=== PATIENT | female | born 1985 | race African-American/Black ===

== ENCOUNTER 2019-06-22 09:01 | Observation (INO) | payer OTHER ==
[2019-06-22] MEDS ORDERED: SODIUM CHLORIDE 1,000 ML IV SCH (09:15)
[2019-06-22 09:19] VITALS: BMI 21.3
--- NOTE | 2019-06-22 09:28 | PDOC ---
History of Present Illness - General Chief Complaint: Weakness Stated Complaint: LT SIDEDE WEAKNESS Time Seen by Provider: 06/22/19 09:17 History Source: Patient Exam Limitations: No Limitations - History of Present Illness Initial Comments: 06/22/19 09:33 34 yo F with a hx of SLE, protein S deficiency, thrombocytopenia, MVP, left renal transplant (02/05/2018), TIA (2009), and CVA (2005) presents to the emergency department with left sided weakness and aphasia. Per the patient, she was normal before 7:45 am. At that time, she had sudden onset of weakness in the left arm and left leg with lightheadedness. EMS was called. En route to [facility] , the patient became aphasic. The patient was initially evaluated by me and was unable to verbally express questions (refer to Dr. Meza's NIHSS stroke scale which is the initial). Currently, she states she is nearly back to normal save for left arm sensory loss and weakness in her left leg. The patient denies the following: fevers, chills, SOB, chest pain, nausea, vomiting, lightheadedness, visual disturbance, ears/nose/throat pain, abdominal pain, dysuria, hematuria, diarrhea, and leg pain/swelling. PMD: Dr. Grover Social: Denies tobacco, alcohol, and substance abuse. 06/22/19 12:58 tPA Exclusion Checklist 0-3hr - Time Elapsed Date last known well: 06/22/19 Time last known well: 07:45 Elaspsed time: Day(s) and 5 Hour(s) and 13 Minutes - Thrombolytic Therapy Candidate Is the patient eligible for Thrombolytic Therapy?: Yes - Exclusion Criteria 0-3hr SBP greater than 185 or DBP greater than 110mmHg despite tx: Yes Recent IC/spinal surgery,head trauma or stroke w/in last 3mo: No Hx of previous IC hemorrhage, IC neoplasm, AVM or aneurysm: No Active internal bleeding: No Blding diathesis(low plt ct, inc PTT,INR>1.7 or use of NOAC): No Symptoms suggest subarachnoid hemorrhage: No CT demonstrates multilobar infarct(>1/3 cerebral hemiphere): No Arterial puncture at noncompressible site in previous 7 days: No Blood glucose concentration less than 50mg/dL (2.7mmol/L): No - Relative Exclusion Criteria 0-3h Life expectancy <1yr/severe co-morbid illness/STATION CHIEF on admit: No : No Patient/family refused: No Rapid improvement: Yes Stroke severity too mild: Yes Recent acute GA (w/in previous 3 months): No Seizure at onset with postictal residual neuro impairments: No Major surgery or serious trauma w/in previous 14 days: No Recent GI or hemorrhage (w/in previous 21 days): No - Ineligibility reason(s) Reasons No tPA given: See reason(s) noted above NIH Stroke Scale - Last Known Well Date/Time & Onset Date Last Known Well: 06/22/19 Time Last Known Well: 07:45 - Initial Evaluation Level of consciousness: Alert Ask patient the month and their age: Answers both correctly Ask patient to open & close eyes; make fist and let go: Obeys both correctly Best gaze (horizontal eye movement): Normal Visual field testing: No visual field loss Facial paresis (Show teeth/raise eyebrows/close eyes tight): Normal symmetrical movement Motor Function: Left Arm: Normal Motor Function: Right Arm: Normal (extends arm 90 (or 45) degrees for 10 seconds without drift Motor Function: Left Leg: Drift Motor Function: Right Leg: Normal (extends leg 30 degrees for 5 seconds without drift) Limb Ataxia: No ataxia Sensory(Use pinprick test arms,legs,trunk,face/side to side): Mild to moderate decrease in sensation Best language (Describe picture, name items, read sentences): No Aphasia Dysarthria (read several words): Normal articulation Extinction and Inattention: No abnormality - Total Score NIH Stroke Scale Score: 2 Past History - Past Medical History Allergies/Adverse Reactions: Allergies Allergy/AdvReac Type Severity Reaction Status Date / Time amoxicillin Allergy Verified 06/22/19 12:51 heparin Allergy Verified 06/22/19 12:41 hydroxychloroquine Allergy Verified 06/22/19 12:51 [From Plaquenil] latex Allergy Verified 06/22/19 09:15 Sulfa (Sulfonamide Allergy Verified 06/22/19 12:51 Antibiotics) iv contrast Allergy Uncoded 06/22/19 12:51 Anemia: Yes (Lupus) CVA: Yes (tia x 2) COPD: No Disorders: Yes (dyalisis,/kidney transplant 04/2019) HTN: Yes - Psycho Social/Smoking Cessation Hx Smoking History: Never smoked Have you smoked in the past 12 months: No Information on smoking cessation initiated: No Hx Alcohol Use: No Drug/Substance Use Hx: No *Physical Exam - Vital Signs Last Vital Signs Temp Pulse Resp BP Pulse Ox 98 F 95 H 16 186/111 H 100 06/22/19 09:01 06/22/19 09:01 06/22/19 09:01 06/22/19 09:01 06/22/19 09:01 - Physical Exam General Appearance: Yes: Nourished, Appropriately Dressed. No: Apparent Distress, Obese HEENT: positive: EOMI, SHWETHA, Normal Voice, Symmetrical, Pharynx Normal, Hearing Grossly Normal. negative: Pale Conjunctivae, Scleral Icterus (R), Scleral Icterus (L), Muffled/Hoarse voice, Pharyngeal Erythema, Tonsillar Exudate, Tonsillar Erythema, Excessive drooling Neck: positive: Trachea midline, Supple. negative: Tender, Lymphadenopathy (R) , Lymphadenopathy (L), Tender lateral, Tender midline Respiratory/Chest: positive: Lungs Clear, Normal Breath Sounds. negative: Chest Tender, Respiratory Distress, Accessory Muscle Use, Rales, Rhonchi, Stridor, Wheezing Cardiovascular: positive: Regular Rhythm, Regular Rate, S1, S2. negative: Systolic Murmur Gastrointestinal/Abdominal: positive: Normal Bowel Sounds, Flat, Soft. negative : Tender, Rebound, Tenderness, Hernia Lymphatic: negative: Adenopathy Musculoskeletal: positive: Normal Inspection. negative: CVA Tenderness Extremity: positive: Normal Capillary Refill, Normal Inspection, Normal Range of Motion. negative: Tender Integumentary: positive: Normal Color, Dry, Warm Neurologic: positive: competitive athlete II-XII NML intact, Fully Oriented, Alert, Normal Mood/ Affect, Normal Response. negative: Motor Strength 5/5 (refer to NIHSS scale) ED Treatment Course - LABORATORY CBC & Chemistry Diagram: 06/22/19 09:25 06/22/19 09:25 Medical Decision Making - Medical Decision Making 34 yo F with a hx of SLE, protein S deficiency, thrombocytopenia, left renal transplant (02/05/2018), TIA (2009), and CVA (2005) presents to the emergency department with left sided weakness and aphasia. Initial vitals: Initial Vital Signs Temp Pulse Resp BP Pulse Ox 98 F 95 H 16 186/111 H 100 06/22/19 09:01 06/22/19 09:01 06/22/19 09:01 06/22/19 09:01 06/22/19 09:01 Work up: 06/22/19 09:[address] Grover at [phone] 06/22/19 09:01 Patient arrived via EMS. Dr. Meza and myself immediately evaluated the patient in the ambulance bay 06/22/19 09:04 Asad noble called 06/22/19 09:[address] Head CT done at 09:11. Patient was brought back to the ED at 09:16. Patient's stroke scale was evaluated by me due to improving symptoms (Refer to stroke scale) At 09:20 am, Dr. Saenz called. Given the patient's improving clinical status and history of thrombocytopenia, patient is not an excellent candidate for tPA. Blood pressure elevated that is not permissible for tPA administration Attending (Dr. Tyler) re-evaluated the patient at 9:30am. Weakness now resolved and only symptom complaint is mild sensory loss in the left arm. 06/22/19 09:42 A call was placed to Dr. Saenz to update patient's status and platelet numbers. Will withhold tPA 06/22/19 09:45 06/22/19 12:42 Discharge - Discharge Information Problems reviewed: Yes Clinical Impression/Diagnosis: TIA (transient ischemic attack) - Follow up/Referral - Patient Discharge Instructions - Post Discharge Activity
[2019-06-22 09:35] LABS: BASO % 0.5 % (0-2.0); EOS % 3.1 % (0-4.5); HEMATOCRIT 35.9 % (32.4-45.2); HEMOGLOBIN 11.7 GM/dL (10.7-15.3); LYMPH % 40.5 % (8-40); MCH 29.5 pg (25.7-33.7); MCHC 32.7 g/dl (32.0-36.0); MEAN CELL VOLUME 90.4 fl (80-96); MEAN PLT VOLUME 7.5 fl (7.5-11.1); NEUT % 46.9 % (42.8-82.8); PLATELET COUNT 236 K/MM3 (134-434); RBC 3.97 M/mm3 (3.60-5.2); RDW 15.1 % (11.6-15.6)
--- NOTE | 2019-06-22 09:46 | PDOC ---
Attending Attestation - Resident Resident Name: Sushil Bernal - ED Attending Attestation I have performed the following: I have examined & evaluated the patient, The case was reviewed & discussed with the resident, I agree w/resident's findings & plan, Exceptions are as noted - HPI HPI: 06/22/19 09:40 agree with resident HPI - Physicial Exam PE: 06/22/19 09:41 GENERAL: Awake, alert, and fully oriented, in no acute distress HEAD: No signs of trauma EYES: PERRLA, EOMI, sclera anicteric, conjunctiva clear ENT: Hearing grossly normal, nares patent, oropharynx clear without exudates. Moist mucosa NECK: Normal ROM, supple, no lymphadenopathy, JVD, or masses LUNGS: Breath sounds equal, clear to auscultation bilaterally. No wheezes, and no crackles HEART: Regular rate and rhythm, normal S1 and S2, no murmurs, rubs or gallops ABDOMEN: Soft, nontender, normoactive bowel sounds. No guarding, no rebound. LLQ transplant non tender, scar well healed EXTREMITIES: Normal range of motion, no edema. No clubbing or cyanosis. No cords, erythema, or tenderness. +L distal arm fistula with palpable thrill NEUROLOGICAL: Normal speech, cranial nerves intact, negative pronator drift, 5/ 5 strength in all 4 extremities, "different" sensation to light touch to the LUE and LLE, normal sensation to light touch to RUE and RLE extremities, normal cerebellar exam, normal gait, normal tone SKIN: Warm, Dry, normal turgor, no rashes or lesions noted. - Medical Decision Making 06/22/19 10:24 34-year-old female with a history of SLE c/b ESRD s/p renal transplant January 2018 ([facility]), protein S deficiency, CVA 2016 with no residual deficits presents to the emergency department with waxing and waning neurologic symptoms. Initially patient was aphasic with left sided weakness and sensory deficit. Code noble was activated, CTH negative (LMP 3 days ago, states no chance she is ). Symptoms mostly resolved with some residual sensory deficit to the left upper and left lower extremity within minutes of arrival. Case was discussed with Dr. Saenz -given low stroke scale TPA was withheld. Shortly thereafter, patient was aphasic once more, comprehending our questions, however unable to respond. At that time, she had no motor or sensory deficits on the right or left sides. Aphasia resolved within minutes. Due to variability of sxs, there is low clinical suspicion of stroke, however, will obtain stat MRI protocol to look for DWI abnormalities. Will hold off on TPA as sxs quickly resolved, stroke scale now 0. Case once again discussed with Dr. Saenz, who is in agreement with our plan. Patient had a left hip replacement 9 years ago at [facility] with Dr. Palma. She is not sure if it is MRI compatible. We put a call out to his office, and confirmed that the hip replacement is MRI compatible. Patient will be transported to MRI shortly for stat study. DWI images negative but possible thrombosis vs artifact in L sigmoid sinus per Dr. Powell. 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 Mariscal for further mgmt Case discussed in detail with admitting physician including history, physical exam and ancillary studies. Admitting physician has assumed care for the patient, will follow all pending diagnostics and will complete the evaluation and treatment.
[2019-06-22 09:50] LABS: INR 0.86 (0.83-1.09); PROTHROMBIN TIME (PATIENT) 10.1 SEC (9.7-13.0)
[2019-06-22 09:56] LABS: LDL CHOLESTEROL (ONLY SJRH) 163 mg/dL (5-100); TRIGLYCERIDES 187 mg/dL (0-150)
[2019-06-22 09:58] LABS: ALBUMIN 2.5 g/dl (3.4-5.0); BILIRUBIN,TOTAL 0.5 mg/dL (0.2-1); CALCIUM 8.7 mg/dL (8.5-10.1); CHOLESTEROL 247 mg/dL (50-200); CREATININE 1.2 mg/dL (0.55-1.3); POTASSIUM 4.3 mmol/L (3.5-5.1); TOT PROT 6.2 g/dl (6.4-8.2)
[2019-06-22] MEDS ORDERED: ASPIRIN 81 MG CHEWABLE TABLETS PO ONE (11:45)
[2019-06-22] MEDS ORDERED: ASPIRIN 81 MG CHEWABLE TABLETS ONE (13:15)
[2019-06-22 13:50] LABS: EPI CELLS 0.8 /HPF (0-5/HPF); HYALINE CASTS 1 /lpf (0-8); PH,URINE 6.5 (5.0-8.0); URINE APPEARANCE CLEAR; URINE BACTERIA 16.5 /hpf (NEGATIVE); URINE BILIRUBIN NEGATIVE (NEGATIVE); URINE COLOR YELLOW; URINE GLUCOSE (UA) NEGATIVE (NEGATIVE); URINE KETONE NEGATIVE (NEGATIVE); URINE LEUK ESTERASE NEGATIVE (NEGATIVE); URINE NITRITE NEGATIVE (NEGATIVE); URINE PROTEIN 3+ (NEGATIVE); URINE RBC 6 /hpf (0-4); URINE UROBILINOGEN 0.2 mg/dL (0.2-1.0); URINE WBC 1 /hpf (0-5)
--- NOTE | 2019-06-22 16:19 | HP ---
Admitting History and Physical - Primary Care Physician PCP: Mirta Mariscal - Admission Chief Complaint: weak, aphasia History of Present Illness: 34-year-old female with a history of SLE c/b ESRD s/p renal transplant January 2018 ([facility]), protein S deficiency, CVA 2016 with no residual deficits presents to the emergency department with waxing and waning neurologic symptoms. Initially patient was aphasic with left sided weakness and sensory deficit. Code noble was activated, CTH negative (LMP 3 days ago, states no chance she is ). Symptoms mostly resolved with some residual sensory deficit to the left upper and left lower extremity within minutes of arrival. Case was discussed with Dr. Saenz -given low stroke scale TPA was withheld. Shortly thereafter, patient was aphasic once more, comprehending our questions, however unable to respond. At that time, she had no motor or sensory deficits on the right or left sides. Aphasia resolved within minutes. Due to variability of sxs, there is low clinical suspicion of stroke, however, will obtain stat MRI protocol to look for DWI abnormalities. - Past Medical History Renal/: Yes: Other (renal transplant) Rheumatology: Yes: Lupus - Smoking History Smoking history: Never smoked Have you smoked in the past 12 months: No - Alcohol/Substance Use Hx Alcohol Use: No Home Medications - Allergies Allergies/Adverse Reactions: Allergies Allergy/AdvReac Type Severity Reaction Status Date / Time amoxicillin Allergy Verified 06/22/19 12:51 heparin Allergy Verified 06/22/19 12:41 hydroxychloroquine Allergy Verified 06/22/19 12:51 [From Plaquenil] latex Allergy Verified 06/22/19 09:15 Sulfa (Sulfonamide Allergy Verified 06/22/19 12:51 Antibiotics) iv contrast Allergy Uncoded 06/22/19 12:51 - Home Medications Home Medications: Ambulatory Orders Unobtainable 06/22/19 Physical Examination Vital Signs: Vital Signs Temperature 98.7 F 06/22/19 15:00 Pulse Rate 95 H 06/22/19 15:00 Respiratory Rate 20 06/22/19 15:00 Blood Pressure 127/84 06/22/19 15:00 O2 Sat by Pulse Oximetry (%) 98 06/22/19 15:23 Constitutional: Yes: No Distress HENT: Yes: Atraumatic Neck: Yes: Supple Cardiovascular: Yes: Regular Rate and Rhythm Respiratory: Yes: CTA Bilaterally Gastrointestinal: Yes: Normal Bowel Sounds Extremities: Yes: WNL Neurological: Yes: Alert, Oriented Labs: CBC, BMP 06/22/19 09:25 06/22/19 09:25 Problem List - Problems (1) Renal transplant, status post Code(s): Z94.0 - KIDNEY TRANSPLANT STATUS (2) TIA (transient ischemic attack) Assessment/Plan: neuro consult mri/mra doing well no symptoms at this point Code(s): G45.9 - TRANSIENT CEREBRAL ISCHEMIC ATTACK, UNSPECIFIED Assessment/Plan Laboratory Tests 06/22/19 06/22/19 06/22/19 09:00 09:25 09:25 WBC RBC Hgb Hct MCV MCH MCHC RDW Plt Count MPV Absolute Neuts (auto) Neutrophils % Lymphocytes % Monocytes % Eosinophils % Basophils % Nucleated RBC % PT with INR 10.10 INR 0.86 PTT (Actin FS) 41.0 H Sodium Potassium Chloride Carbon Dioxide Anion Gap BUN Creatinine Est GFR (CKD-EPI)AfAm Est GFR (CKD-EPI)NonAf POC Glucometer Random Glucose Calcium Total Bilirubin AST ALT Alkaline Phosphatase Creatine Kinase 91 Troponin I < 0.02 Total Protein Albumin Triglycerides Cholesterol 247 H Total LDL Cholesterol HDL Cholesterol Serum , Qual Negative Urine Color Urine Appearance Urine pH Ur Specific [place] Urine Protein Urine Glucose (UA) Urine Ketones Urine Blood Urine Nitrite Urine Bilirubin Urine Urobilinogen Ur Leukocyte Esterase Urine WBC (Auto) Urine RBC (Auto) Urine Casts (Auto) U Epithel Cells (Auto) Urine Bacteria (Auto) Blood Type Antibody Screen 06/22/19 06/22/19 06/22/19 09:25 09:25 09:25 WBC 5.0 RBC 3.97 Hgb 11.7 Hct 35.9 MCV 90.4 MCH 29.5 MCHC 32.7 RDW 15.1 Plt Count 236 MPV 7.5 Absolute Neuts (auto) 2.3 Neutrophils % 46.9 Lymphocytes % 40.5 H Monocytes % 9.0 Eosinophils % 3.1 Basophils % 0.5 Nucleated RBC % 0 PT with INR INR PTT (Actin FS) Sodium 139 Potassium 4.3 Chloride 112 H Carbon Dioxide 23 Anion Gap 4 L BUN 13.0 Creatinine 1.2 Est GFR (CKD-EPI)AfAm 67.33 Est GFR (CKD-EPI)NonAf 58.09 POC Glucometer Random Glucose 127 H Calcium 8.7 Total Bilirubin 0.5 AST 30 ALT 13 Alkaline Phosphatase 99 Creatine Kinase Troponin I Total Protein 6.2 L Albumin 2.5 L Triglycerides 187 H Cholesterol Total LDL Cholesterol 163 H HDL Cholesterol 61 H Serum , Qual Urine Color Urine Appearance Urine pH Ur Specific [place] Urine Protein Urine Glucose (UA) Urine Ketones Urine Blood Urine Nitrite Urine Bilirubin Urine Urobilinogen Ur Leukocyte Esterase Urine WBC (Auto) Urine RBC (Auto) Urine Casts (Auto) U Epithel Cells (Auto) Urine Bacteria (Auto) Blood Type Antibody Screen 06/22/19 06/22/19 06/22/19 09:25 09:50 13:20 WBC RBC Hgb Hct MCV MCH MCHC RDW Plt Count MPV Absolute Neuts (auto) Neutrophils % Lymphocytes % Monocytes % Eosinophils % Basophils % Nucleated RBC % PT with INR INR PTT (Actin FS) Sodium Potassium Chloride Carbon Dioxide Anion Gap BUN Creatinine Est GFR (CKD-EPI)AfAm Est GFR (CKD-EPI)NonAf POC Glucometer 127 Random Glucose Calcium Total Bilirubin AST ALT Alkaline Phosphatase Creatine Kinase Troponin I Total Protein Albumin Triglycerides Cholesterol Total LDL Cholesterol HDL Cholesterol Serum , Qual Urine Color Yellow Urine Appearance Clear Urine pH 6.5 Ur Specific [place] 1.015 Urine Protein 3+ H Urine Glucose (UA) Negative Urine Ketones Negative Urine Blood Negative Urine Nitrite Negative Urine Bilirubin Negative Urine Urobilinogen 0.2 Ur Leukocyte Esterase Negative Urine WBC (Auto) 1 Urine RBC (Auto) 6 Urine Casts (Auto) 1 U Epithel Cells (Auto) 0.8 Urine Bacteria (Auto) 16.5 Blood Type O POSITIVE Antibody Screen Negative Active Medications Generic Name Dose Route Start Last Admin Trade Name Ilene PRN Reason Stop Dose Admin Sodium Chloride 1,000 mls @ 42 mls/hr 06/22/19 09:15 06/22/19 10:09 Normal Saline - IV 42 mls/hr ASDIR REMA Administration
--- NOTE | 2019-06-22 16:20 | CONSULT ---
Consultation: REQUESTING PROVIDER: Dr. Mariscal CONSULT REQUEST: We have been asked to medically evaluate this patient for Hx. of transplant s/p Gadolinium for suspected TIA. HISTORY OF PRESENT ILLNESS: Pt. is a 34 y.o. F w/ PMHx. of Lupus (s/p renal Transplant), Protein C deficiency, endocarditis, mitral valve prolapse, thrombocytopenia, and CVA x 2 presents for spontaneous left arm weakness this morning associated with dizziness. Pt. states that she has had a history of CVAs with residual left sided numbness but that she is not on anticoagulation ( unsure as to why). Pt. states that she does not take any anti rejection medications apart from Belatacept once monthly (next dose due August 06). Call was placed to [facility](closed); Pt.s Transplant Careers Adviser is Dr. Grover. Call was then placed to [facility] where resident read discharge summary stating that Arava 20mg was discontinued one January 20 and that Pt. was only taking Prednisone 5 mg PRN. It was also confirmed that last creatinine was 1.75. all information was consistent with what the Pt. stated. Pt. stated that all the other anti-rejection meds were discontinued because it caused elevations in the creatinine and were poorly tolerated. Pt. states she was on HD for 6 years prior to transplant. Currently Pt. denies any new symptoms including nausea, vomiting, dysuria, any weakness in the left sided or any other concerning symptoms. REVIEW OF SYSTEMS: As above PHYSICAL EXAMINATION Vital Signs - 24 hr 06/22/19 06/22/19 06/22/19 09:01 10:09 13:24 Temperature 98 F Pulse Rate 95 H Pulse Rate [ 80 80 Apical] Respiratory 16 18 16 Rate Blood Pressure 186/111 H Blood Pressure 175/104 H 140/80 [Right Arm] O2 Sat by Pulse 100 99 100 Oximetry (%) 06/22/19 06/22/19 15:00 15:23 Temperature 98.7 F Pulse Rate 95 H Pulse Rate [ Apical] Respiratory 20 Rate Blood Pressure 127/84 Blood Pressure [Right Arm] O2 Sat by Pulse 98 Oximetry (%) GENERAL: Awake, alert, and fully oriented, in no acute distress. HEAD: Normal with no signs of trauma. EYES: Pupils equal, round and reactive to light, extraocular movements intact, sclera anicteric, conjunctiva clear. EARS, NOSE, THROAT: Ears normal, nares patent, oropharynx clear without exudates. Moist mucous membranes. NECK: Normal range of motion, supple without lymphadenopathy, JVD, or masses. LUNGS: Breath sounds equal, clear to auscultation bilaterally. No wheezes, and no crackles. No accessory muscle use. HEART: Regular rate and rhythm, normal S1 and S2 with systolic murmur without click ABDOMEN: Soft, nontender, not distended, normoactive bowel sounds, no guarding, no rebound, no masses. Surgical scar in Left lower abdomen. MUSCULOSKELETAL: Normal range of motion at all joints. No bony deformities or tenderness. No CVA tenderness. UPPER EXTREMITIES: Warm, well-perfused. No cyanosis. No clubbing. LUE AV fistula. No peripheral edema. LOWER EXTREMITIES: 2+ dorsal pedal pulses, warm, well-perfused. No calf tenderness. No peripheral edema. NEUROLOGICAL: Cranial nerves grossly II-XII intact. Left arm and leg numbness. Normal speech. PSYCHIATRIC: Cooperative. Good eye contact. Appropriate mood and affect. SKIN: Warm, dry, normal turgor Laboratory Results - last 24 hr 06/22/19 06/22/19 06/22/19 09:00 09:25 09:25 WBC RBC Hgb Hct MCV MCH MCHC RDW Plt Count MPV Absolute Neuts (auto) Neutrophils % Lymphocytes % Monocytes % Eosinophils % Basophils % Nucleated RBC % PT with INR 10.10 INR 0.86 PTT (Actin FS) 41.0 H Sodium Potassium Chloride Carbon Dioxide Anion Gap BUN Creatinine Est GFR (CKD-EPI)AfAm Est GFR (CKD-EPI)NonAf POC Glucometer Random Glucose Calcium Total Bilirubin AST ALT Alkaline Phosphatase Creatine Kinase 91 Troponin I < 0.02 Total Protein Albumin Triglycerides Cholesterol 247 H Total LDL Cholesterol HDL Cholesterol Serum , Qual Negative Urine Color Urine Appearance Urine pH Ur Specific [place] Urine Protein Urine Glucose (UA) Urine Ketones Urine Blood Urine Nitrite Urine Bilirubin Urine Urobilinogen Ur Leukocyte Esterase Urine WBC (Auto) Urine RBC (Auto) Urine Casts (Auto) U Epithel Cells (Auto) Urine Bacteria (Auto) Blood Type Antibody Screen 06/22/19 06/22/19 06/22/19 09:25 09:25 09:25 WBC 5.0 RBC 3.97 Hgb 11.7 Hct 35.9 MCV 90.4 MCH 29.5 MCHC 32.7 RDW 15.1 Plt Count 236 MPV 7.5 Absolute Neuts (auto) 2.3 Neutrophils % 46.9 Lymphocytes % 40.5 H Monocytes % 9.0 Eosinophils % 3.1 Basophils % 0.5 Nucleated RBC % 0 PT with INR INR PTT (Actin FS) Sodium 139 Potassium 4.3 Chloride 112 H Carbon Dioxide 23 Anion Gap 4 L BUN 13.0 Creatinine 1.2 Est GFR (CKD-EPI)AfAm 67.33 Est GFR (CKD-EPI)NonAf 58.09 POC Glucometer Random Glucose 127 H Calcium 8.7 Total Bilirubin 0.5 AST 30 ALT 13 Alkaline Phosphatase 99 Creatine Kinase Troponin I Total Protein 6.2 L Albumin 2.5 L Triglycerides 187 H Cholesterol Total LDL Cholesterol 163 H HDL Cholesterol 61 H Serum , Qual Urine Color Urine Appearance Urine pH Ur Specific [place] Urine Protein Urine Glucose (UA) Urine Ketones Urine Blood Urine Nitrite Urine Bilirubin Urine Urobilinogen Ur Leukocyte Esterase Urine WBC (Auto) Urine RBC (Auto) Urine Casts (Auto) U Epithel Cells (Auto) Urine Bacteria (Auto) Blood Type Antibody Screen 06/22/19 06/22/19 06/22/19 09:25 09:50 13:20 WBC RBC Hgb Hct MCV MCH MCHC RDW Plt Count MPV Absolute Neuts (auto) Neutrophils % Lymphocytes % Monocytes % Eosinophils % Basophils % Nucleated RBC % PT with INR INR PTT (Actin FS) Sodium Potassium Chloride Carbon Dioxide Anion Gap BUN Creatinine Est GFR (CKD-EPI)AfAm Est GFR (CKD-EPI)NonAf POC Glucometer 127 Random Glucose Calcium Total Bilirubin AST ALT Alkaline Phosphatase Creatine Kinase Troponin I Total Protein Albumin Triglycerides Cholesterol Total LDL Cholesterol HDL Cholesterol Serum , Qual Urine Color Yellow Urine Appearance Clear Urine pH 6.5 Ur Specific [place] 1.015 Urine Protein 3+ H Urine Glucose (UA) Negative Urine Ketones Negative Urine Blood Negative Urine Nitrite Negative Urine Bilirubin Negative Urine Urobilinogen 0.2 Ur Leukocyte Esterase Negative Urine WBC (Auto) 1 Urine RBC (Auto) 6 Urine Casts (Auto) 1 U Epithel Cells (Auto) 0.8 Urine Bacteria (Auto) 16.5 Blood Type O POSITIVE Antibody Screen Negative Active Medications Current Medications Sodium Chloride (Normal Saline -) 1,000 mls @ 42 mls/hr IV ASDIR [facility] Last Admin: 06/22/19 10:09 Dose: 42 mls/hr ASSESSMENT/PLAN: Pt. is a 34 y.o. F w/ PMHx. of Lupus (s/p renal Transplant), Protein C deficiency, endocarditis, mitral valve prolapse, thrombocytopenia, and CVA x 2 presents for spontaneous left arm weakness this morning associated with dizziness. #Hx. of Renal Transplant 2/2 Lupus s/p Gadolinium MRI for TIA symptoms Head CT Neg. Cr. currently 1.2; last Cr. was 1.75 monitor BMP daily Prednisone 5mg PRN c/w NS @ 42 #CVA in setting of Protein C deficiency, elevated cholesterol and elevated BP elevated cholesterol and Trigs would suggest starting statin if not contraindicated would suggest aggressive BP control once 24 hr of permissive HTN has passed; Pt. camein Hypertensive to 180s/110s and has since resolved w/o medications f/u Heme/ Onc recommendations for evaluation of AC f/u Neurology evaluation f/u MRI results #DVT Ppx. early ambulation allergic to Heparin Dispo: We will continue to follow the patient. Thank you for this consultative opportunity. Visit type - Emergency Visit Emergency Visit: Yes ED Registration Date: 06/22/19 Care time: The patient presented to the Emergency Department on the above date and was hospitalized for further evaluation of their emergent condition. - New Patient This patient is new to me today: Yes Date on this admission: 06/22/19 - Critical Care Critical Care patient: No ATTENDING PHYSICIAN STATEMENT I saw and evaluated the patient. I reviewed the resident's note and discussed the case with the resident. I agree with the resident's findings and plan as documented. SUBJECTIVE: OBJECTIVE: ASSESSMENT AND PLAN:
--- NOTE | 2019-06-22 16:26 | PN ---
Teaching Attending Note Name of Resident: Haider Hunt (Nephrology) ATTENDING PHYSICIAN STATEMENT I saw and evaluated the patient. I reviewed the resident's note and discussed the case with the resident. I agree with the resident's findings and plan as documented. Renal Pt is a 34 year old female with pmhx of ckd, kidney transplant, SLE, cva x2, protein s deficiency, and cellular rejection who presents to the ER after an episode of dizziness and left arm weakness. She presented to er for eval. I was called to evaluate her as she has a kidney transplant. Pt did not tolerated prograf or mycophenylate after transplant. She get s belatacept injections and is due for one on aug 06. She denies dysuria or hematuria. pmhx cva, kidney transplant, sle, protein s deficiency pshx kidney transplant, av fistula, hip replacement allergies amoxicillin heparin hydroxychloroquin latex family hx non contrib social hx denies ros denies Current Medications Generic Name Dose Route Start Last Admin Trade Name Freq PRN Reason Stop Dose Admin Sodium Chloride 1,000 mls @ 42 mls/hr 06/22/19 09:15 06/22/19 10:09 Normal Saline - IV 42 mls/hr ASDIR [facility] Administration Last Vital Signs Temp Pulse Resp BP Pulse Ox 98.7 F 95 H 20 127/84 98 06/22/19 15:00 06/22/19 15:00 06/22/19 15:00 06/22/19 15:00 06/22/19 15:23 Laboratory Tests 06/22/19 06/22/19 06/22/19 09:25 09:25 13:20 WBC 5.0 Hgb 11.7 Sodium 139 Potassium 4.3 Creatinine 1.2 Urine Protein 3+ H Urine Blood Negative well nourished cardio s1s2 murmur gi soft gu trasnplant soft skin tatoo neuro awake and alert pulm clear ext left arm fistula neg edema Impression 1. 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 ckd last equipment coordinator was 1.7 as outpt 3. sle 4. cva x2 5. protein s deficiency Plan - monitor renal function - pt is no on any oral anti-rejection meds - next injection for 08/06 - neuro eval - monitor neuro status - repeat labs in am - avoid nephrotoxins
--- NOTE | 2019-06-23 06:28 | CONSULT ---
Consult - text type - Consultation Consultation Note: 34 y.o. F w/ PMHx. of Lupus (s/p renal Transplant), Protein S deficiency, endocarditis, mitral valve prolapse, thrombocytopenia, and CVA x 2 presents for spontaneous left arm weakness this morning associated with dizziness. Pt. states that she has had history of CVAs with residual left sided numbness but that she is not on anticoagulation. Pt. states that she does not take any anti rejection medications apart from Belatacept once monthly (next dose due August 06). Pt.s Transplant Bridge Maintenance Worker is Dr. Grover. Currently feels well and denies any symptoms AFVSS Cor: RSR, No murmurs, No gallops Lungs: Clear to P&A Abd: Soft, Normal bowel sounds, No organomegaly Ext:No significant edema Abnormal Lab Results 06/22/19 06/22/19 06/22/19 09:25 09:25 09:25 Lymphocytes % 40.5 H PTT (Actin FS) 41.0 H Chloride Anion Gap Random Glucose Total Protein Albumin Triglycerides Cholesterol 247 H Total LDL Cholesterol HDL Cholesterol Urine Protein 06/22/19 06/22/19 06/22/19 09:25 09:25 13:20 Lymphocytes % PTT (Actin FS) Chloride 112 H Anion Gap 4 L Random Glucose 127 H Total Protein 6.2 L Albumin 2.5 L Triglycerides 187 H Cholesterol Total LDL Cholesterol 163 H HDL Cholesterol 61 H Urine Protein 3+ H Active Medications Generic Name Dose Route Start Last Admin Trade Name Freq PRN Reason Stop Dose Admin Sodium Chloride 1,000 mls @ 42 mls/hr 06/22/19 09:15 06/22/19 10:09 Normal Saline - IV 42 mls/hr ASDIR [facility] Administration ASSESSMENT/PLAN: Pt. is a 34 y.o. F w/ PMHx. of Lupus (s/p renal Transplant), Protein C deficiency, endocarditis, mitral valve prolapse, thrombocytopenia, and CVA x 2 ( 2006 and 2009) presents for spontaneous left arm weakness this morning associated with dizziness.Symptoms have resolved. Had 1 dose of ASA h/o CVA -- 2006 --was presumed to be embolic from endocarditis per patient. She was placed on coumadin for 1 yr. at that time.Unsure if protein S was tested on coumadin ( which lowers protein C/S) or prior to initiating coumadin. Was seen by a detacher and coumadin was stopped after a year Also had another CVA in 2009 and was on lovenox for 1 month No other DVT/PEs No family h/o thrombophilia Also with h/o lupus and thrombocytopenia in the past Currently not on any a/c Will check abntiphospholipid panel /thrombophilia and discuss with neurology regarding a/c at this time Will need input and cose f/u with primary team at [place] CBC WNL Cr 1.2 U/A 3+ protein Check thrombophilia w/u -- protein C/S, antithrombin III, AntiB2 glycoprotein IgG/IgM, Anticardiolipin ab IgG/IgM, Lupus anticoagulant, [id number] mutation, Factor V leiden mutation Follow up neuro consult
--- NOTE | 2019-06-23 09:12 | CONSULT ---
Consult - text type - Consultation Consultation Note: neurology History of Present Illness 34 yo F with a hx of SLE, protein S deficiency, thrombocytopenia, MVP, left renal transplant (02/05/2018), TIA (2009), and CVA (2005) presents to the emergency department with left sided weakness and aphasia. Per the patient, she was normal before 7:45 am the morning of admission. At that time, she had sudden onset of weakness in the left arm and left leg with lightheadedness. EMS was called. En route to [facility], the patient became aphasic. The patient was initially evaluated by ER and was unable to verbally express questions. I was contacted by the emergency department as part of danelle Cortez. Was told NIHSS initially was 4, but on reevaluation was reduced to 2. Thereafter contacted by ER attending and mention of speech difficulty. MRI brain was obtained within the ER and did not show any acute infarct. There was concern for venous sinus thrombosis and therefore MRV was also completed and was also within normal limits. this morning she states states she is back to normal save for left arm sensory loss and weakness in her left leg. The patient denies the following: fevers, chills, SOB, chest pain, nausea, vomiting, lightheadedness, visual disturbance, ears/nose/throat pain, abdominal pain, dysuria, hematuria, diarrhea , and leg pain/swelling. Hematology note reviewed. Past History - Past Medical History Allergies/Adverse Reactions: Allergies Allergy/AdvReac Type Severity Reaction Status Date / Time amoxicillin Allergy Verified 06/22/19 12:51 heparin Allergy Verified 06/22/19 12:41 hydroxychloroquine Allergy Verified 06/22/19 12:51 [From Plaquenil] latex Allergy Verified 06/22/19 09:15 Sulfa (Sulfonamide Allergy Verified 06/22/19 12:51 Antibiotics) iv contrast Allergy Uncoded 06/22/19 12:51 Anemia: Yes (Lupus) CVA: Yes (tia x 2) COPD: No Disorders: Yes (dyalisis,/kidney transplant 04/2019) HTN: Yes - Psycho Social/Smoking Cessation Hx Smoking History: Never smoked Have you smoked in the past 12 months: No Information on smoking cessation initiated: No Hx Alcohol Use: No Drug/Substance Use Hx: No Family: HTN Active Medications Sodium Chloride (Normal Saline -) 1,000 mls @ 42 mls/hr IV ASDIR [facility] Last Admin: 06/22/19 10:09 Dose: 42 mls/hr *Physical Exam Vital Signs Period Temp Pulse Resp BP Sys/Munoz Pulse Ox Last 24 Hr 97.4 F-98.7 F 64-95 16-20 127-175/64-104 98-100 - Physical Exam General Appearance: Yes: Nourished, Appropriately Dressed. No: Apparent Distress, Obese HEENT: positive: EOMI, SHWETHA, Normal Voice, Symmetrical, Pharynx Normal, Hearing Grossly Normal. negative: Pale Conjunctivae, Scleral Icterus (R), Scleral Icterus (L), Muffled/Hoarse voice, Pharyngeal Erythema, Tonsillar Exudate, Tonsillar Erythema, Excessive drooling Neck: positive: Trachea midline, Supple. negative: Tender, Lymphadenopathy (R) , Lymphadenopathy (L), Tender lateral, Tender midline Respiratory/Chest: positive: Lungs Clear, Normal Breath Sounds. negative: Chest Tender, Respiratory Distress, Accessory Muscle Use, Rales, Rhonchi, Stridor, Wheezing Cardiovascular: positive: Regular Rhythm, Regular Rate, S1, S2. negative: Systolic Murmur Gastrointestinal/Abdominal: positive: Normal Bowel Sounds, Flat, Soft. negative : Tender, Rebound, Tenderness, Hernia Lymphatic: negative: Adenopathy Musculoskeletal: positive: Normal Inspection. negative: CVA Tenderness Extremity: positive: Normal Capillary Refill, Normal Inspection, Normal Range of Motion. negative: Tender Integumentary: positive: Normal Color, Dry, Warm Neurologic: Awake, alert, oriented, cranial nerves intact, upper and lower extremity strength intact and normal, sensory intact, finger-nose normal CBCD WBC 5.0 K/mm3 (4.0-10.0) 06/22/19 09:25 RBC 3.97 M/mm3 (3.60-5.2) 06/22/19 09:25 Hgb 11.7 GM/dL (10.7-15.3) 06/22/19 09:25 Hct 35.9 % (32.4-45.2) 06/22/19 09:25 MCV 90.4 fl (80-96) 06/22/19 09:25 MCHC 32.7 g/dl (32.0-36.0) 06/22/19 09:25 RDW 15.1 % (11.6-15.6) 06/22/19 09:25 Plt Count 236 K/MM3 (134-434) 06/22/19 09:25 MPV 7.5 fl (7.5-11.1) 06/22/19 09:25 CMP Sodium 139 mmol/L (136-145) 06/22/19 09:25 Potassium 4.3 mmol/L (3.5-5.1) 06/22/19 09:25 Chloride 112 mmol/L (98-107) H 06/22/19 09:25 Carbon Dioxide 23 mmol/L (21-32) 06/22/19 09:25 Anion Gap 4 MMOL/L (8-16) L 06/22/19 09:25 BUN 13.0 mg/dL (7-18) 06/22/19 09:25 Creatinine 1.2 mg/dL (0.55-1.3) 06/22/19 09:25 Random Glucose 127 mg/dL (74-106) H 06/22/19 09:25 Calcium 8.7 mg/dL (8.5-10.1) 06/22/19 09:25 Total Bilirubin 0.5 mg/dL (0.2-1) 06/22/19 09:25 AST 30 U/L (15-37) 06/22/19 09:25 ALT 13 U/L (13-61) 06/22/19 09:25 Alkaline Phosphatase 99 U/L (45-117) 06/22/19 09:25 Total Protein 6.2 g/dl (6.4-8.2) L 06/22/19 09:25 Albumin 2.5 g/dl (3.4-5.0) L 06/22/19 09:25 CARDIAC ENZYMES Creatine Kinase 91 U/L (26-192) 06/22/19 09:25 Troponin I < 0.02 ng/ml (0.00-0.05) 06/22/19 09:25 Medical Decision Making 34 yo F with a hx of SLE, protein S deficiency, thrombocytopenia, MVP, left renal transplant (02/05/2018), TIA (2009), and CVA (2005) presents to the emergency department with left sided weakness and aphasia. Per the patient, she was normal before 7:45 am the morning of admission. At that time, she had sudden onset of weakness in the left arm and left leg with lightheadedness. EMS was called. En route to [facility], the patient became aphasic. The patient was initially evaluated by ER and was unable to verbally express questions. I was contacted by the emergency department as part of danelle Cortez. Was told NIHSS initially was 4, but on reevaluation was reduced to 2. Thereafter contacted by ER attending and mention of speech difficulty. MRI brain was obtained within the ER and did not show any acute infarct. There was concern for venous sinus thrombosis and therefore MRV was also completed and was also within normal limits. this morning she states states she is back to normal save for left arm sensory loss and weakness in her left leg. The patient denies the following: fevers, chills, SOB, chest pain, nausea, vomiting, lightheadedness, visual disturbance, ears/nose/throat pain, abdominal pain, dysuria, hematuria, diarrhea , and leg pain/swelling. Hematology note reviewed. Neurologicaly stable, defer to hematology regarding anticoagulation for underlying protein S deficiency. Patient with history of thrombocytopenia and therefore was not able to tolerate aspirin. At this point, no new infarcts on imaging and therefore will not add any new medication but in the future Plavix may be considered to see if this is more tolerable for the patient. Discussed with the patient and she was in agreement,, does not want to be on antiplatelet at this point.
[2019-06-23 11:10] LABS: ALBUMIN 2.4 g/dl (3.4-5.0); BILIRUBIN,TOTAL 0.6 mg/dL (0.2-1); BLOOD UREA NITROGEN 16.3 mg/dL (7-18); CALCIUM 8.9 mg/dL (8.5-10.1); CREATININE 1.3 mg/dL (0.55-1.3); POTASSIUM 3.9 mmol/L (3.5-5.1); TOT PROT 5.6 g/dl (6.4-8.2)
--- NOTE | 2019-06-23 11:28 | EKG ---
Test Reason : Blood Pressure : / mmHG Vent. Rate : 078 BPM Atrial Rate : 078 BPM P-R Int : 172 ms QRS Dur : 088 ms QT Int : 384 ms P-R-T Axes : 048 011 025 degrees QTc Int : 437 ms NORMAL SINUS RHYTHM NORMAL ECG NO PREVIOUS ECGS AVAILABLE Confirmed by MD Carli, Jonathan ([id number]) on 06/23/2019 11:27:59 AM Referred By: Confirmed By:Jonathan Boyce MD
--- NOTE | 2019-06-23 12:47 | PN ---
Progress Note, Physician History of Present Illness: Pt seen and examined at bedside. She is awake and alert. She says she feels well and has not any more neurologic episodes. - Current Medication List Current Medications: Active Medications Sodium Chloride (Normal Saline -) 1,000 mls @ 42 mls/hr IV ASDIR [facility] Last Admin: 06/22/19 10:09 Dose: 42 mls/hr - Objective Vital Signs: Vital Signs Temperature 98.3 F 06/23/19 10:00 Pulse Rate 72 06/23/19 10:00 Respiratory Rate 18 06/23/19 10:00 Blood Pressure 138/90 06/23/19 10:00 O2 Sat by Pulse Oximetry (%) 99 06/23/19 09:00 Constitutional: Yes: Calm Eyes: Yes: Conjunctiva Clear HENT: Yes: Atraumatic Cardiovascular: Yes: S1, S2 Respiratory: Yes: CTA Bilaterally Gastrointestinal: Yes: Soft Genitourinary: Yes: Other (graft soft and non tender) Musculoskeletal: Yes: WNL Extremities: Yes: WNL Edema: No Neurological: Yes: Oriented Psychiatric: Yes: Oriented Labs: CBC, BMP 06/22/19 09:25 06/23/19 10:25 INR, PTT INR 0.86 (0.83-1.09) 06/22/19 09:25 Assessment/Plan Current Medications Generic Name Dose Route Start Last Admin Trade Name Freq PRN Reason Stop Dose Admin Sodium Chloride 1,000 mls @ 42 mls/hr 06/22/19 09:15 06/22/19 10:09 Normal Saline - IV 42 mls/hr ASDIR REMA Administration Impression 1. 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 ckd last slate trimmer was 1.7 as outpt 3. sle 4. cva x2 5. protein s deficiency 6. proteinuria Plan - can stop fluids - renal function stable - pt will follow with Dr Romero - pt will follow with transplant team for proeinuria - avoid nephrotoxins
--- NOTE | 2019-06-23 15:54 | PN ---
Progress Note, Physician - Objective Vital Signs: Vital Signs Temperature 98.1 F 06/23/19 13:42 Pulse Rate 77 06/23/19 13:42 Respiratory Rate 18 06/23/19 13:42 Blood Pressure 136/75 06/23/19 13:42 O2 Sat by Pulse Oximetry (%) 99 06/23/19 09:00 Constitutional: Yes: No Distress HENT: Yes: Atraumatic Neck: Yes: Supple Cardiovascular: Yes: Regular Rate and Rhythm Respiratory: Yes: CTA Bilaterally Gastrointestinal: Yes: Normal Bowel Sounds Extremities: Yes: WNL Neurological: Yes: Alert, Oriented Labs: CBC, BMP 06/22/19 09:25 06/23/19 10:25 INR, PTT INR 0.86 (0.83-1.09) 06/22/19 09:25 Problem List - Problems (1) Renal transplant, status post Code(s): Z94.0 - KIDNEY TRANSPLANT STATUS (2) TIA (transient ischemic attack) Assessment/Plan: neuro consult mri/mra Code(s): G45.9 - TRANSIENT CEREBRAL ISCHEMIC ATTACK, UNSPECIFIED
--- NOTE | 2019-06-23 15:59 | DS ---
Physical Examination Vital Signs: Vital Signs Temperature 98.1 F 06/23/19 13:42 Pulse Rate 77 06/23/19 13:42 Respiratory Rate 18 06/23/19 13:42 Blood Pressure 136/75 06/23/19 13:42 O2 Sat by Pulse Oximetry (%) 99 06/23/19 09:00 Constitutional: Yes: No Distress HENT: Yes: Atraumatic Neck: Yes: Supple Cardiovascular: Yes: Regular Rate and Rhythm Respiratory: Yes: CTA Bilaterally Gastrointestinal: Yes: Normal Bowel Sounds Extremities: Yes: WNL Neurological: Yes: Alert, Oriented Labs: CBC, BMP 06/22/19 09:25 06/23/19 10:25 Discharge Summary Problems reviewed: Yes Reason For Visit: TIA Current Active Problems Renal transplant, status post (Acute) TIA (transient ischemic attack) (Acute) Condition: Stable - Instructions Diet, Activity, Other Instructions: Follow-up with your dinker [facility] Referrals: Patric Saenz MD [Staff Physician] - Disposition: HOME - Home Medications Comprehensive Discharge Medication List: Ambulatory Orders Unobtainable 06/22/19 [facility]
--- NOTE | 2019-06-23 18:20 | PN ---
Progress Note (short form) - Note Progress Note: Discussed with patient need to follow up on thrombophilia work up and importance for herself and family, Patient agrees and to f/u with neurology.
[2019-06-23 18:28] VITALS: BP 149/79; PULSE 69; TEMP 97.9
== END 2019-06-23 18:30 | disposition home or self-care (01) ==
LOC: JER 09:01 → INTOOBSV 10:55 → JERBED 10:55 → UNDOADMOB 10:55 → J4W 14:58 → JERBED 14:58 → J4W 06-23 10:44
PROVIDERS: ADMIT Internal Medicine; ATTEND Internal Medicine
PROC: 3E0337Z Introduction of Electrolytic and Water Balance Substance into Peripheral Vein, Percutaneous Approach (ICD-10-PCS; principal; 2019-06-23)
DX: G45.9 Transient cerebral ischemic attack, unspecified (principal); M32.9 Systemic lupus erythematosus, unspecified; D53.0 Protein deficiency anemia; D64.9 Anemia, unspecified; I34.1 Nonrheumatic mitral (valve) prolapse; E78.5 Hyperlipidemia, unspecified; I10 Essential (primary) hypertension; Z86.79 Personal history of other diseases of the circulatory system; Z86.73 Personal history of transient ischemic attack (TIA), and cerebral infarction without residual deficits; Z94.0 Kidney transplant status; Z96.642 Presence of left artificial hip joint; Z88.0 Allergy status to penicillin; Z88.2 Allergy status to sulfonamides; Z88.8 Allergy status to other drugs, medicaments and biological substances; Z91.040 Latex allergy status; Z91.041 Radiographic dye allergy status
CPT/HCPCS: 36415; 70450-TC; 70545-TC; 70553-TC; 71045-TC-FY; 80053; 81003; 82465; 82550; 82962; 83718; 83721; 84478; 84484; 84703; 85025; 85610; 85730; 86850; 86900; 86901; 93005; 93010; 99285-25; A9579; C1887; G0378; J7030